=== PATIENT | female | born 1950 | race African-American/Black ===

== ENCOUNTER → 2017-09-13 | Outpatient (CLI) | payer OTHER ==
[~2017-09-13] MED LIST: ADVAIRDISKUS; ALBUTEROL NEB PO; ALBUTEROL2.5 MG/31 INH; CALCIUM 500 +1 EAC5 PO; CALCIUM 600 +1 EAC8 PO; CARAFATE 1 GM TA1 G1 PO; CEFDINIR300 MG PO; COLCHICINE0.6 MG PO; DILANTIN100 MG PO; DIPHENHIST50 MG PO; DUONEB 2.5-0.5 M3 ML INH; HYDROCODON-ACE1 EAC7 PO; HYDROCODON-ACE1 EACH PO; IPRAT-ALBUT 0.5-3 ML IH; IPRATROPIU0.2 MG/1 M INH; KEPPRA 500 MG500 M1 PO; LASIX 40 MG TAB40 M2 PO; MAGOX 400400 MG PO; METOLAZONE 5 MG5 MG PO; NYSTATIN1 EAC1 TOP; PHOSPHA NEUTRAL1 TA1 PO; PREDNISONE 10 M10 MG PO; PREDNISONE 20 M20 MG PO; PRINIVIL5 MG PO; PROPAFENONE 15150 MG PO; PROTONIX40 M1 PO; PROTONIX40 M2 PO; PROTONIX40 M4 PO; PROVENTIL HFA6.7 G1 INH; PULMICORT0.5 MG/22 INH; SINGULAIR 10 MG10 M1 PO; SYMBICORT160 MCG/4. INH; TUMS PO; TYLENOL325 MG PO; VALIUM5 MG PO; VITAMIN B-1100 M1 PO; VITAMIN B-12500 MCG PO; VITAMIN D1000 UNI1 PO; VITAMIN D2000 UNIT PO; VOLTAREN GEL 1100 G2 TOP; ZOLOFT50 MG PO
== END ==
LOC: RAD 09:28
DX: J84.10 Pulmonary fibrosis, unspecified (principal)

== ENCOUNTER 2018-11-04 23:35 | Inpatient (IN) | payer OTHER ==
[~2018-11-04] VITALS: Ht 162.6 cm; Wt 72.0 kg
[2018-11-04 23:36] VITALS: BP 160/85
[2018-11-05] VITALS (21 sets, daily range): BP systolic 115–149; BP diastolic 57–82
[2018-11-05 00:05] LABS: BE(vivo) 4.3 mmol/L (-2 to +3); HCO3 35.9 mmol/L (22.0-26.0); sO2 49.3 % (92.0-98.0)
[2018-11-05 00:09] LABS: PCO2 116.6 mmHg (35.0-45.0); PO2 37.3 mmHg (80.0-100.0); pH 7.106 (7.360-7.450)
[2018-11-05] MEDS ORDERED: CARAFATE 1 GM TA1 G1 PO (00:20)
[2018-11-05] MEDS ORDERED: ZOLOFT50 MG PO (00:21)
[2018-11-05] MEDS ORDERED: KEPPRA 500 MG500 M1 PO (00:24)
[2018-11-05] MEDS ORDERED: DILANTIN 100 M100 MG PO (00:25)
[2018-11-05] MEDS ORDERED: PROTONIX40 M1 PO (00:26)
[2018-11-05] MEDS ORDERED: ASPIR 8181 MG PO (00:26)
[2018-11-05] MEDS ORDERED: ANORO ELLIPTA1 EACH INH (00:42)
[2018-11-05] MEDS ORDERED: PROCRIT20000 UNIT SUBQ (00:44)
[2018-11-05] MEDS ORDERED: SODIUM BICARBO650 M3 PO (00:45)
[2018-11-05] MEDS ORDERED: DEMADEX20 MG PO (00:46)
[2018-11-05 01:01] LABS: HEMATOCRIT 31.2 % (37.0-47.0); HEMOGLOBIN 8.7 gm/dL (12.0-15.0); MCH 22.6 pg (26.0-34.0); MCV 80.5 fL (80.0-100.0); PLATELET COUNT 200 thou/uL (150-400); RBC 3.88 mil/uL (4.20-5.00); RDW 17.4 % (10.5-14.5); WBC 6.8 thou/uL (4.0-11.0)
[2018-11-05 01:10] LABS: ANION GAP 5 mmol/L (7-16); BUN 27 mg/dL (7-18); CALCIUM 8.1 mg/dL (8.5-10.1); CHLORIDE 105 mmol/L (98-107); CO2 34 mmol/L (21-32); CREATININE 2.8 mg/dL (0.6-1.0); GLUCOSE 90 mg/dL (74-106); POTASSIUM 4.9 mmol/L (3.5-5.1); SODIUM 144 mmol/L (136-145)
[2018-11-05 01:18] LABS: TROPONIN-I <0.06 ng/mL (<0.06)
[2018-11-05 01:26] LABS: BE(vivo) 1.6 mmol/L (-2 to +3); HCO3 31.8 mmol/L (22.0-26.0); PCO2 92.2 mmHg (35.0-45.0); PO2 90.8 mmHg (80.0-100.0); pH 7.155 (7.360-7.450); sO2 93.8 % (92.0-98.0)
[2018-11-05 01:37] LABS: ABSOLUTE NEUTROPHILS 3.8 thou/uL (1.4-8.2); ANISOCYTOSIS 1+; ATYPICAL LYMPHS 1 %
[2018-11-05 01:38] LABS: LARGE PLATELETS OCCASIONAL; MICROCYTES 2+
[2018-11-05 02:23] LABS: BE(vivo) 1.7 mmol/L (-2 to +3); HCO3 31.9 mmol/L (22.0-26.0); sO2 93.6 % (92.0-98.0)
[2018-11-05 02:24] LABS: PCO2 94.1 mmHg (35.0-45.0); pH 7.148 (7.360-7.450)
--- NOTE | 2018-11-05 06:31 | NUR ---
Patient arrived to the unit from the ED. Patient admitted with respiratory failure. Patient arrived to the unit on 4L NC and is doing well. VS remained stable and no acute events occurred.
[2018-11-05 07:15] LABS: BE(vivo) 7.9 mmol/L (-2 to +3); HCO3 38.8 mmol/L (22.0-26.0); PO2 67.6 mmHg (80.0-100.0); pH 7.146 (7.360-7.450); sO2 85.3 % (92.0-98.0)
--- NOTE | 2018-11-05 08:45 | 2DMMODE ---
[facility] [address] [place] [address] 2 D/M-MODE ECHOCARDIOGRAM Name: KHURRAM SHEFFIELD Room #: 245-P ADM IN M.R.#: [id number] ������������� Admission: 11/05/18 ������������� Attend Phys: Isaiah Currie, Discharge: ��� ������������� ��� Date of : 50 Date of Service: 11/05/18 0845 �� Report #: [id number] �������� ��������������������������������������������[id number] THIS REPORT FOR: //name// APPROVED REPORT Study performed: 11/05/2018 07:59:13 EXAM: Comprehensive 2D, Doppler, and color-flow Echocardiogram Patient Location: ICU Room #: [facility] Status: routine BSA: 1.71 HR: 90 bpm BP: 138/69 mmHg Rhythm: NSR Other Information Study Quality: Good/patient on BiPAP, not positioned Indications Congestive Heart Failure Dyspnea Peripheral Edema Hx: COPD, PHTN, HTN. 2D Dimensions RVDd: 46.91 mm IVSd: 14.11 (7-11mm) LVDd: 42.22 mm PWd: 12.55 (7-11mm) Ascending Ao: 33.43 (22-36mm) LVDs: 26.88 (25-40mm) Aortic Root: 30.42 mm Volumes Left Atrial Volume (Systole) Single Plane 4CH: 65.22 mL Single Plane 2CH: 62.09 mL LA ESV Index: 40.00 mL/m2 Aortic Valve AoV Peak Benjamín.: 2.82 m/s AO Peak Gr.: 47.32 mmHg LVOT Max P.63 mmHg LVOT Max V: 1.47 m/s Mitral Valve [facility] [address] [place] [address] 2 D/M-MODE ECHOCARDIOGRAM Name: KHURRAM SHEFFIELD Room #: 245-P [facility] IN .R.#: [id number] ������������� Admission: 11/05/18 ������������� Attend Phys: Isaiah Currie, Discharge: ��� ������������� ��� Date of : 50 Date of Service: 11/05/18 0845 �� Report #: [id number] �������� ��������������������������������������������[id number] E/A Ratio: 0.9 MV Decel. Time: 169.74 ms MV E Max Benjamín.: 0.92 m/s MV A Benjamín.: 1.00 m/s MV PHT: 49.22 ms IVRT: 53.06 ms Pulmonary Valve PV Peak Benjamín.: 1.04 m/s PV Peak Gr.: 4.31 mmHg Pulmonary Vein P Vein S: 0.68 m/s P Vein A: 0.34 m/s P Vein D: 0.51 m/s P Vein A Dur.: 90.0 msec P Vein S/D Ratio: 1.33 Tricuspid Valve TR Peak Benjamín.: 4.10 m/s RAP Estimate: 15.00 mmHg TR Peak Gr.: 67.30 mmHg PA Pressure: 82.00 mmHg Left Ventricle The left ventricle is normal size. There is normal LV segmental wall motion. Mild concentric left ventricular hypertrophy. Left ventricular systolic function is normal. LVEF is 65%. Mild diastolic dysfunction is present (impaired relaxation pattern). Right Ventricle Right ventricle is dilated. Right ventricle is mildly hypokinetic. Atria Left atrium is dilated. Right atrium is dilated. Aortic Valve The aortic valve is mildly sclerotic. No aortic regurgitation is present. There is no aortic valvular stenosis. Mitral Valve The mitral valve is normal in structure. Trace to mild mitral regurgitation. Tricuspid Valve The tricuspid valve is normal in structure. Moderate tricuspid regurgitation. Severe pulmonary hypertension with an estimated PAP of 80mmHg. [facility] [address] [place] [address] 2 D/M-MODE ECHOCARDIOGRAM Name: KHURRAM SHEFFIELD Room #: 245-P [facility] IN .R.#: [id number] ������������� Admission: 11/05/18 ������������� Attend Phys: Isaiah Currie, Discharge: ��� ������������� ��� Date of : 50 Date of Service: 11/05/18 0845 �� Report #: [id number] �������� ��������������������������������������������[id number] Pulmonic Valve The pulmonary valve is normal in structure. Trace pulmonic regurgitation. Great Vessels The aortic root is normal in size. The ascending aorta is normal in size. IVC is normal in size and collapses >50% with inspiration. Pericardium There is no pericardial effusion. <Conclusion> Left ventricular systolic function is normal. There is normal LV segmental wall motion. LVEF is 65%. Mild diastolic dysfunction Right ventricle is dilated and mildly hypokinetic. Both atria are dilated. The aortic valve is mildly sclerotic. No aortic valvular stenosis or insufficiency The mitral valve is normal in structure. Trace to mild mitral regurgitation. Moderate tricuspid regurgitation. Severe pulmonary hypertension with an estimated PAP of 80mmHg. There is no pericardial effusion. ��������������������������������������������� <ELECTRONICALLY SIGNED> ���������������������������������������� By: Devon Vang MD, [facility] ��������������������������������������������� 11/05/1845 4 4 Devon Vang MD, FAC /INF
[2018-11-05 10:18] LABS: BE(vivo) 5.8 mmol/L (-2 to +3); PCO2 88.6 mmHg (35.0-45.0); PO2 57.1 mmHg (80.0-100.0); pH 7.215 (7.360-7.450); sO2 81.8 % (92.0-98.0)
--- NOTE | 2018-11-05 13:29 | NUR ---
INITIALLY NOT ON BIPAP THIS MORNING, ABG OBTAINED AND CRITICAL RESULTS CALLED TO DR. REYES. PATIENT PLACED ON BIPAP. ANOTHER ABG OBTAINED AFTER 2HRS AND REPORTED TO DR. REYES WHEN HE ROUNDED. DR. REYES OK FOR PATIENT TO TAKE BREAKS FROM BIPAP. PATIENT DROWSY BUT ORIENTED AND VITALS STABLE.
--- NOTE | 2018-11-05 14:08 | EKG ---
[address] [address] ELECTROCARDIOGRAM REPORT Name: KHURRAM SHEFFIELD VICKI Room #: 245-P ADM IN M.R.#: [id number] ������������������ Admission: 11/05/18 ������������������ Attend Phys: Isaiah Currie MD Discharge: ������������������ Date of : 50 Report #: [id number] ����������������������������������������������������������������� [id number] THIS REPORT FOR: //name// [facility] ED Test Date: 2018-11-05 Test Time: 00:09:48 Pat Name: KHURRAM SHEFFIELD Department: Room: [facility] Gender: F Sandwich Maker: TIM : 1950 Requested By: Axel Curtis Order Number: [id number] MD: Rory Lopez Measurements Intervals [place] Rate: 105 P: 37 [place]: 166 QRS: -19 QRSD: 89 T: 29 QT: 361 QTc: 478 Interpretive Statements Sinus tachycardia Probable left atrial enlargement Borderline left axis deviation Low voltage, precordial leads Abnormal R-wave progression, late transition Compared to ECG 04/23/2015 22:48:42 Low QRS voltage now present Sinus rhythm no longer present T-wave abnormality no longer present Electronically Signed On 11-05-2018 14:08:29 CDT by Rory Lopez [email or web address] ��������������������������������������������� <ELECTRONICALLY SIGNED> ���������������������������������������� By: Rory Lopez MD ��������������������������������������������� 11/05/18 1408 Rory Lopez MD /EPI
--- NOTE | 2018-11-05 16:13 | NUR ---
INITIAL ASSESSMENT: SW reviewed chart and spoke with nursing and attending physician. Pt was admitted from home due to hypercapnic respiratory failure/acute pulmonary edema. Pt is currently on IV abx and bipap. Per nursing, pt was just placed back on bipap. Per chart, pt lives at home. Pt has home O2 in place and used [facility] in the past. SW to follow up with pt at a later time when able to participate in conversation, and will assist as needed with discharge planning.
[2018-11-06] VITALS (19 sets, daily range): BP systolic 119–156; BP diastolic 55–85
--- NOTE | 2018-11-06 07:00 | NUR ---
Pt slept off and on through the night with stable VS. PRN fentanyl given for c/o generalized discomfort with desired effect achieved. Tolerated wearing BiPap for most of the night and SpO2 remain adequate. Taking PO ice chips with no c/o nausea and no BM observed. Voiding per bedpan without difficulty. Continue with POC.
[2018-11-06 11:07] LABS: BE(vivo) 5.5 mmol/L (-2 to +3); HCO3 33.1 mmol/L (22.0-26.0); PCO2 69.1 mmHg (35.0-45.0); PO2 59.1 mmHg (80.0-100.0); pH 7.298 (7.360-7.450); sO2 86.8 % (92.0-98.0)
--- NOTE | 2018-11-06 12:00 | NUR ---
[place] PLACED AND PATENT. O2 SAT DECREASES WITH ACTIVITY OF TURNING, AND NOW IS ABLE TO REST QUIETLY
--- NOTE | 2018-11-06 20:25 | NUR ---
PATIENT TRANSFERRED TO 212 PER W/C WITH O2 AND SLICE CUTTING MACHINE OPERATOR. TOLERATED GETTING INTO CHAIR WITHOUT DIZZINESS OR DYSPNEA. REPORT GIVEN TO NURSE ON 2N
[2018-11-07 00:14] VITALS: BP 135/60
[2018-11-07 04:30] VITALS: BP 144/77
[2018-11-07 05:33] LABS: CALCIUM 8.3 mg/dL (8.5-10.1); CREATININE 2.2 mg/dL (0.6-1.0); POTASSIUM 3.4 mmol/L (3.5-5.1)
--- NOTE | 2018-11-07 07:59 | NUR ---
PT NOT ABLE TO REST THRU THE EVENING, STATED THE RT TX'S WERE MAKING HER TO JITTERY AND ANXIOUS, ORDER RECEIVED FOR DIAZEPAM PRN, STATED PAIN WAS UNDER CONTROL THRU NOC, VSS, SCDS ON, AND USING CALL LIGHT APPROPRIATLY FOR ASSIST TO BSC, REPORT GIVEN TO NEXT SHIFT TO CON'T PPOC.
[2018-11-07 08:00] VITALS: BP 143/61
[2018-11-07 12:00] VITALS: BP 144/76
[2018-11-07 16:00] VITALS: BP 153/62
--- NOTE | 2018-11-07 17:18 | NUR ---
PT CARE ASSUMED APPROX 0915. PT ALERT AND ORIENTED X4. REPORTS GENERALIZED PAIN 7-8/10. REPORTS ADEQUATE PAIN MANAGEMENT WITH CURRENT POC. REPORTS SOA ON EXERTION. VSS. UP WITH SBA TO BSC. PT REPORTS EXTREME SLEEP DEPRIVATION AND A RESULT THERE WAS MINIMAL PARTICIPATION IN PT/OT. FALL PRECAUTIONS IN PLACE DUE TO POTENTIAL CONFUSION. PT DOES NOT WANT BED ALARM BUT ONCE EDUCATED RELUCTANTLY COMPLIED. INTERVENTIONS AND MEDS ADJUSTED TO POC TO HELP PROMOTE ADEQUATE SLEEP TONIGHT. ISOLATION INITIATED. REQUIRED SPECIMEN COLLECTED. WILL F/U. NO DISTRESS NOTED.
[2018-11-07 19:44] VITALS: BP 112/58
[2018-11-08 05:21] VITALS: BP 124/66
[2018-11-08 07:22] VITALS: BP 131/83
--- NOTE | 2018-11-08 07:24 | NUR ---
ASSUME CARE 1900. PT/VITALS STABLE. SOA WITH EXERTION. DENIES PAIN AND TOLERATES ACTIVITY MODERATELY. ASSESSMENT CHARTED. PROGRESSING SLOWLY WITH POC. PLAN IS TO CONTINUE WITH STEROIDS, BREATHING TREATMENT AND ABX. WILL CONTINUE TO MONITOR AND FOLLOW WITH POC
[2018-11-08 10:04] LABS: HEMATOCRIT 26.1 % (37.0-47.0); HEMOGLOBIN 7.6 gm/dL (12.0-15.0); MCH 22.6 pg (26.0-34.0); MCHC 29.3 g/dL (28.0-37.0); MCV 77.3 fL (80.0-100.0); RBC 3.37 mil/uL (4.20-5.00); RDW 17.4 % (10.5-14.5)
[2018-11-08 10:11] LABS: CALCIUM 7.8 mg/dL (8.5-10.1); CREATININE 2.2 mg/dL (0.6-1.0)
[2018-11-08 13:30] VITALS: BP 123/75
[2018-11-08 16:25] VITALS: BP 135/61
[2018-11-08 20:00] VITALS: BP 127/54
--- NOTE | 2018-11-09 03:05 | NUR ---
ASSESSMENT DOCUMENTED.PT BEEN RESTING IN NO ACUTE DISTRESS.A/OX4.VSS.O2 AT 2LITERS.LUNGS WHEEZING NOTED THAT IS RELIEVED WITH NEBULIZER TX.ABTS GIVEN PER ORDERS.PT DENIES ANY PAIN OR ANY DISTRESS AT THIS TIME.AMBULATES WITH SBA TO BR.WILL CONT TO MONITOR PER POC.
[2018-11-09 04:00] VITALS: BP 147/71
[2018-11-09 05:17] LABS: HEMATOCRIT 28.2 % (37.0-47.0); HEMOGLOBIN 8.1 gm/dL (12.0-15.0); MCH 22.6 pg (26.0-34.0); MCHC 28.8 g/dL (28.0-37.0); MCV 78.5 fL (80.0-100.0); RBC 3.6 mil/uL (4.20-5.00); RDW 17.3 % (10.5-14.5); WBC 6.9 thou/uL (4.0-11.0)
[2018-11-09 05:18] LABS: CALCIUM 8.1 mg/dL (8.5-10.1); CREATININE 2.1 mg/dL (0.6-1.0); MAGNESIUM 2.7 mg/dL (1.8-2.4)
[2018-11-09 05:21] LABS: POTASSIUM 4.1 mmol/L (3.5-5.1)
[2018-11-09] MEDS ORDERED: PREDNISONE 10 M10 MG PO (10:52)
[2018-11-09] MEDS ORDERED: AZITHROMYCIN 2250 MG PO (10:53)
[2018-11-09] MEDS ORDERED: CEFDINIR300 MG PO (10:54)
[2018-11-09 11:40] VITALS: BP 147/71
--- NOTE | 2018-11-09 12:43 | NUR ---
ASSESSMENT CHARTED - MEDS PER ALESHIA - RENAE DIET AND FLUIDS WITH NO CO'S OF NASUEA. NO CO'S OF PAIN. UP IN ROOM TO THE BATHROOM - STEADY ON FEET. O2 AT 3 LNC - HOME DOSE. PT DISCHARED TO HOME - INTSRUCTION RE HOME MEDS/ CARE AND FOLLOW UP GIVEN TO PATIENT - STATED UNDERSTANDING OF INSTRUCTION GIVEN. IV AND MONITOR REMOVED PRIOR TO D/C. PT LEFT UNIT VIA WHEELCHAIR - HOME VIA PVT VEHICLE ACCOMAPNIED BY FRIEND . NO CO'S AT TIME OF D/C.
== END 2018-11-09 12:30 | disposition home or self-care (01) | DRG 291 ==
LOC: ER 23:35 → ICU 11-05 02:55 → EROBS 11-05 02:55 → ICU 11-05 04:26 → 2N 11-06 18:05
PROVIDERS: Emergency Medicine; Internal Medicine Pulmonary Disease; Nurse Practitioner Family; ADMIT Internal Medicine
DX: I13.0 Hypertensive heart and chronic kidney disease with heart failure and stage 1 through stage 4 chronic kidney disease, or unspecified chronic kidney disease (principal); J96.21 Acute and chronic respiratory failure with hypoxia; J81.0 Acute pulmonary edema; J18.9 Pneumonia, unspecified organism; J96.22 Acute and chronic respiratory failure with hypercapnia; J44.1 Chronic obstructive pulmonary disease with (acute) exacerbation; F13.20 Sedative, hypnotic or anxiolytic dependence, uncomplicated; F11.20 Opioid dependence, uncomplicated; J44.0 Chronic obstructive pulmonary disease with (acute) lower respiratory infection; J45.909 Unspecified asthma, uncomplicated; G89.29 Other chronic pain; M54.5 Low back pain; I27.20 Pulmonary hypertension, unspecified; F41.9 Anxiety disorder, unspecified; I50.9 Heart failure, unspecified; N18.3 Chronic kidney disease, stage 3 (moderate); G62.9 Polyneuropathy, unspecified; G47.00 Insomnia, unspecified; D64.9 Anemia, unspecified; Z98.42 Cataract extraction status, left eye; Z98.41 Cataract extraction status, right eye; Z88.8 Allergy status to other drugs, medicaments and biological substances; Z87.891 Personal history of nicotine dependence; Z79.899 Other long term (current) drug therapy; Z79.82 Long term (current) use of aspirin
CPT/HCPCS: 10078; 10081

== ENCOUNTER 2018-11-27 10:57 | Inpatient (IN) | payer OTHER ==
[~2018-11-27] VITALS: Ht 162.6 cm; Wt 74.2 kg
[2018-11-27] VITALS (20 sets, daily range): BP systolic 128–164; BP diastolic 55–108
[~2018-11-27 10:57] MED LIST changes: +ANORO ELLIPTA1 EACH INH; +ASPIR 8181 MG PO; +AZITHROMYCIN 2250 MG PO; +DEMADEX20 MG PO; +DILANTIN 100 M100 MG PO; +PROCRIT20000 UNIT SUBQ; +SODIUM BICARBO650 M3 PO
[2018-11-27 11:29] LABS: MCV 80.3 fL (80.0-100.0)
[2018-11-27 11:35] LABS: HEMATOCRIT 28.3 % (37.0-47.0); HEMOGLOBIN 8.1 gm/dL (12.0-15.0); MCHC 28.7 g/dL (28.0-37.0); RBC 3.53 mil/uL (4.20-5.00); RDW 17.4 % (10.5-14.5)
[2018-11-27 11:40] LABS: CALCIUM 7.1 mg/dL (8.5-10.1); CREATININE 2.6 mg/dL (0.6-1.0); POTASSIUM 3.6 mmol/L (3.5-5.1)
[2018-11-27 11:50] LABS: ALBUMIN 3.5 g/dL (3.4-5.0); TOTAL BILIRUBIN 0.2 mg/dL (<0.1-1.0); TOTAL PROTEIN 6.1 g/dL (6.4-8.2); TROPONIN-I 0.08 ng/mL (<0.06)
[2018-11-27 12:01] LABS: ANISOCYTOSIS 1+; HYPOCHROMASIA 1+; OVALOCYTES FEW; PLATELET COUNT 126 thou/uL (150-400); TEARDROPS OCCASIONAL
[2018-11-27 12:14] LABS: HCO3 27.6 mmol/L (22.0-26.0); PO2 78.1 mmHg (80.0-100.0)
[2018-11-27 12:15] LABS: PCO2 80.5 mmHg (35.0-45.0); pH 7.153 (7.360-7.450)
--- NOTE | 2018-11-27 16:08 | NUR ---
PATIENT ARRIVED TO UNIT AT 1535 FROM THE ED. PATIENT ON BIPAP. ALERT AND ORIENTED X4. PATIENT TRANSFERRED TO ICU BED AND GIVEN A BATH WITH CHX WIPES.
--- NOTE | 2018-11-27 16:52 | EKG ---
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
[2018-11-27 17:42] LABS: BE(vivo) 4.2 mmol/L (-2 to +3); HCO3 33.8 mmol/L (22.0-26.0); PO2 56.5 mmHg (80.0-100.0); sO2 80.5 % (92.0-98.0)
[2018-11-27 17:43] LABS: PCO2 89.6 mmHg (35.0-45.0); pH 7.194 (7.360-7.450)
--- NOTE | 2018-11-27 20:56 | NUR ---
ASSESSMENTS AND INTERVENTIONS DOCCUMENTED. PATIENT TRANSFERRED FROM ED AND SETTLED INTO ICU BED. PATIENT REQUESTING ICE AND NURSE EXPLAINED TO PATIENT NPO STATUS. PATIENT ROUNDED ON BY DR. REYES. ORDERS RECIEVED FOR FULL LIQUIDS DIET. REPORT GIVEN TO MARINE OPERATIONS COORDINATOR RN
[2018-11-28] VITALS (37 sets, daily range): BP systolic 123–169; BP diastolic 27–84
--- NOTE | 2018-11-28 05:48 | NUR ---
NO OVERNIGHT EVENTS. PT ON 4-5L NC THROUGHOUT THE NIGHT. PT REFUSED TO USE THE BIPAP, SAID SHE CANNOT TOLERATE IT. PT'S O2 WOULD DESAT WITH ACTIVITY (USING THE BEDPAN) OR IF HER HEAD WAS LAID FLAT, BUT OTHERWISE REMAINED > 94%. BP ELEVATED AT TIMES, BUT USUALLY COMES DOWN WITHOUT INTERVENTION. WILL CONTINUE TO MONITOR.
[2018-11-28 06:16] LABS: HEMATOCRIT 26.5 % (37.0-47.0); HEMOGLOBIN 7.6 gm/dL (12.0-15.0); MCH 22.9 pg (26.0-34.0); MCHC 28.8 g/dL (28.0-37.0); MCV 79.6 fL (80.0-100.0); RBC 3.33 mil/uL (4.20-5.00); RDW 16.8 % (10.5-14.5); WBC 6.4 thou/uL (4.0-11.0)
[2018-11-28 06:20] LABS: CALCIUM 7.6 mg/dL (8.5-10.1); CREATININE 2.3 mg/dL (0.6-1.0); POTASSIUM 3.6 mmol/L (3.5-5.1)
--- NOTE | 2018-11-28 15:40 | NUR ---
CM ASSESSMENT: CASE OPENED FOR DC PLANNING. CLINICAL INFO REVIEWED. PT KNOWN FROM PREVIOUS ADMITS. MET WITH PT WHO IS ALERT AND ORIENTED X4. PT LIVES IN HOUSE ALONE, HAS HOME O2 (3L NC) AND NEBULIZER FROM [facility]. ALSO HAS CANE SHE USES WHEN OUT. DOES NOT DRIVE. FAMILY DRIVES PT. REMOTE HX OF [facility]. SEES DR. ZACHERY العلي FOR PULM. DPOA IN SCANNED IMAGES SHOWS HER COUSIN PAT MEDICAL DPOA BUT PT STATES SHE CHANGED DPOA TO A FAMILY MEMBER, SHADI KAYE [phone]. RN UPDATED. THERAPY EVALS ORDERED. WILL FOLLOW TO ASSIST WITH DC PLANNING. POSSIBLE HOME HEALTH.
--- NOTE | 2018-11-28 16:19 | NUR ---
PT IS DROWSY. PT WAS ANXIOUS TODAY AND VALIUM GIVEN ON APR FOR ANXIETY NOTED WITH PT THEN PT IS DROWSY NOW. LUNGS ARE COARSE TO DIMINISHED. ON 7 LITERS NASAL CANULA. FAMILY AT BEDSIDE FOR SUPPORT. ABDOMEN IS SOFT AND ROUND. BOWEL SOUNDS ACTIVE. SCDS ON BILATERAL. NO COMPLAINTS OF PAIN NOTED. REFUSES TO WEAR BIPAP MACHINE AND PULMONARY AWARE OF REFUSAL AT THIS TIME. WILL CONTINUE TO ASSESS AND MONITOR PER NURSING.
[2018-11-28 19:28] LABS: BE(vivo) 2.2 mmol/L (-2 to +3); HCO3 34.7 mmol/L (22.0-26.0); PO2 59.2 mmHg (80.0-100.0); sO2 74.1 % (92.0-98.0)
[2018-11-28 19:32] LABS: PCO2 132.7 mmHg (35.0-45.0); pH 7.035 (7.360-7.450)
[2018-11-29] VITALS (23 sets, daily range): BP systolic 117–162; BP diastolic 50–79
[2018-11-29 05:43] LABS: HEMATOCRIT 26.4 % (37.0-47.0); HEMOGLOBIN 7.8 gm/dL (12.0-15.0); MCH 23.7 pg (26.0-34.0); MCHC 29.4 g/dL (28.0-37.0); MCV 80.5 fL (80.0-100.0); RBC 3.28 mil/uL (4.20-5.00); RDW 16.8 % (10.5-14.5); WBC 6.8 thou/uL (4.0-11.0)
--- NOTE | 2018-11-29 06:00 | NUR ---
PT ON BIPAP MOST OF THE NIGHT. PT EDUCATED ON IMPORTANCE OF WEARING BIPAP WITH ELEVATED CO2. PT TOOK ONE HOUR BREAK FROM [id number] AND THEN WANTED IT OFF AT 0515 THIS MORNING, SAYING SHE WANTED TO TALK TO A PHYSCIAN BEFORE WEARING IT ANYMORE. SHE SAID THERE IS ANOTHER WAY BESIDES THE BIPAP AND SHE CANNOT TOLERATE IT. PT PUT ON 8L 02 NC. WILL CONTINUE TO MONITOR.
[2018-11-29 06:01] LABS: CALCIUM 7.5 mg/dL (8.5-10.1); POTASSIUM 4.2 mmol/L (3.5-5.1)
[2018-11-29 06:03] LABS: CREATININE 3.3 mg/dL (0.6-1.0)
[2018-11-29 14:46] LABS: BE(vivo) -0.9 mmol/L (-2 to +3); HCO3 29.5 mmol/L (22.0-26.0); PO2 61.2 mmHg (80.0-100.0); sO2 80.9 % (92.0-98.0)
[2018-11-29 14:49] LABS: PCO2 93.7 mmHg (35.0-45.0); pH 7.116 (7.360-7.450)
--- NOTE | 2018-11-29 19:20 | NUR ---
ASSUMED CARE @ 0700 11/29/18, PT ASSESSMENTS AND VSS COMPLETED PER ICU PROTOCOL. FAMILY HERE TO VISIT WITH DURING THE SHIFT, PT HAD AN UNEVENTFUL DAY.
[2018-11-30] VITALS (14 sets, daily range): BP systolic 133–174; BP diastolic 59–83
--- NOTE | 2018-11-30 01:30 | NUR ---
EPISODE OF EPISTAXIS TONIGHT. PT STARTED BLEEDING FROM RT NARE AROUND 2029, WHEN PT STARTED BLOWING HER NOSE D/T CONGESTION. PT SAID THE BLEEDING BEGAN WHEN THEY SWABBED HER NOSE AROUND DINNER TIME. THERE WAS NO BLEEDING FROM START OF SHIFT AT 1900 UNTIL 2029. BLEEDING WAS MINIMAL AND PT WAS INSTRUCTED TO KEEP HOB UP AND LEAN HEAD FORWARD. BLEEDING STARTED TO INCREASE AROUND 2229, SO BENJAMIN PATEL CALLED AND ORDER OBTAINED FOR AFRIN NASAL SPRAY, AND IF THE BLEEDING DID NOT STOP, THEN TO HAVE ER PHYSICIAN PACK PT'S NOSE. AFRIN NASAL SPRAY ADMINISTERED, BUT THE BLEEDING DID NOT STOP OR SLOW DOWN. ER CALLED AND NASAL PACKING REQUESTED AT 2355. PACKING WAS PLACED BY DR. HEWITT AT 0020. AFTER RT NARE WAS PACKED, PT PLACED ON BIPAP. PT CALLED OUT AND SAID SHE COULD NOT WEAR THE BIPAP D/T PRESSURE FROM THE PACKING AND PRESSURE FROM THE MASK. PT WAS NOT GETTING SUFFICIENT O2 THROUGH NASAL CANNULA D/T PACKING, SO PT WAS PLACED ON VENTIMASK AT 40% FIO2 AND O2 SAT IS >88%. WILL CONTINUE TO MONITOR.
--- NOTE | 2018-11-30 07:30 | NUR ---
NO CHANGES FROM PRIOR NOTE. PACKING REMAINS IN PLACE IN RT NARE. PT DID NOT WEAR BIPAP AND WAS ON THE VENTIMASK THE REMAINDER OF THE NIGHT. PT C/O HEADACHE, BUT WAS VERY DROWSY AND NOT GIVEN PAIN MEDS. WILL CONTINUE TO MONITOR.
--- NOTE | 2018-11-30 08:38 | NUR ---
ASSUMED CARE OF PT FOR DAY SHIFT, A&0X4, SLIGHTLY FORGETFUL. TIRED, REPORTS OF NOSE BLEED STARTING EARLY A.M. HOURS, DR PLACED PACKING, DRIED BLOOD AND A LITTLE FRESH AT ENTRANCE TO NARES. PT SLEEPY, ENCOURAGED HER TO USE CALL LIGHT FOR ANY NEEDS. DRANK JUICE TO ENSURE BG OF 77 DIDN'T GET ANY LOWER THE MOMENT SHE REMOVES VENTI HER SATS DROP IMMEDIATELY. SHE ISN'T HUNGRY AT THIS TIME. SET UP/MONITORED PER ICU STANDARDS AND MONITORED FREQUENTLY. SEE SEPARATE INTERVENTIONS FOR ASSESSMENTS
--- NOTE | 2018-11-30 23:06 | NUR ---
ASSUMED PT CARE AT 1900. VSS. HR SLIGHTLY ELEVATED BUT LES THAN 110s. PT IS STABLE, A&0X4 AND IN HIGH SPIRITS. NO COMPLAINTS OF DISCOMFORT. ASSESSMENTS AND MEDS GIVEN ARE CHARTED. REPORT CALLED TO 3W NURSE AND PT EXITED THE UNIT TO 3W IN POSSESION OF ALL PERSONAL BELONGINS.
[2018-12-01 03:50] VITALS: BP 154/76
[2018-12-01 05:16] LABS: CALCIUM 7.3 mg/dL (8.5-10.1)
[2018-12-01 05:38] LABS: CREATININE 4.4 mg/dL (0.6-1.0)
[2018-12-01 05:45] LABS: HEMATOCRIT 23.7 % (37.0-47.0); MCH 23.1 pg (26.0-34.0); MCHC 29.7 g/dL (28.0-37.0); MCV 77.9 fL (80.0-100.0); RBC 3.04 mil/uL (4.20-5.00); RDW 16.7 % (10.5-14.5); WBC 6.4 thou/uL (4.0-11.0)
--- NOTE | 2018-12-01 05:57 | NUR ---
PT ARRIVED TO UNIT FROM ICU. PT WEARING VENTI-MASK DUE TO NASAL PACKING PLACED BY ER DOCTOR. CONSULT TO ENT WILL BE PLACED THIS MORNING. PT WILL NOT BE ON BIPAP UNTIL PACKING REMOVED. PT KEEPS ASKING FOR IT TO BE REMOVED. X1 TO BSC. CONTINUOS PULSE OX IN PLACE PT TAKES THE MASK OFF DURING SLEEP. PT HAS NO OTHER COMPLAINTS. HOURLY ROUNDING.
[2018-12-01 09:09] VITALS: BP 155/86
[2018-12-01 12:00] VITALS: BP 153/75
--- NOTE | 2018-12-01 14:04 | NUR ---
is here to see pt.
[2018-12-01 15:58] VITALS: BP 151/80
[2018-12-01 16:55] VITALS: BP 151/80
--- NOTE | 2018-12-01 18:00 | NUR ---
Pt is doing well after nose pillow removed. No s/sx of any active bleeding indicates,humidifier add to her Ventimask by RT. Will continue to monitor her closely.
[2018-12-01 19:30] VITALS: BP 138/66
[2018-12-02 03:58] VITALS: BP 151/60
[2018-12-02 05:40] LABS: HEMATOCRIT 24.4 % (37.0-47.0); HEMOGLOBIN 7.1 gm/dL (12.0-15.0); MCH 22.9 pg (26.0-34.0); MCHC 29.2 g/dL (28.0-37.0); MCV 78.3 fL (80.0-100.0); RBC 3.11 mil/uL (4.20-5.00); RDW 16.9 % (10.5-14.5); WBC 7.3 thou/uL (4.0-11.0)
[2018-12-02 05:51] LABS: ALBUMIN 2.9 g/dL (3.4-5.0); CALCIUM 7.3 mg/dL (8.5-10.1); CREATININE 4.1 mg/dL (0.6-1.0); PHOSPHORUS 3.3 mg/dL (2.5-4.9)
[2018-12-02 05:55] LABS: MAGNESIUM 0.8 mg/dL (1.8-2.4)
[2018-12-02 07:31] VITALS: BP 156/76
--- NOTE | 2018-12-02 12:17 | NUR ---
SW reviewed chart and spoke with nursing and attending physician. Pt was transferred to from ICU and is progressing towards goals for discharge. ENT consulted due to pt having nose bleeds. Renal consulted due to CKD and low potassium. Pt remains on continuous O2 and IV abx. Therapy is working with pt to assist with recommendation for discharge needs. Pt has used [facility] in the past. SW is following to assist as needed with discharge planning.
[2018-12-02 15:56] VITALS: BP 145/83
[2018-12-02 17:36] LABS: MAGNESIUM 2.1 mg/dL (1.8-2.4); POTASSIUM 3.6 mmol/L (3.5-5.1)
[2018-12-02 19:48] VITALS: BP 133/71
[2018-12-03 03:35] VITALS: BP 141/74
--- NOTE | 2018-12-03 04:32 | NUR ---
cont. pulse ox. she desats when getting up to the bsc. she is good about calling for assist out of bed. denies pain. she is frusterated and is wanting to get home. cooperative with cares. careplan reviewed.
[2018-12-03 05:58] LABS: ALBUMIN 3.1 g/dL (3.4-5.0); CALCIUM 8.1 mg/dL (8.5-10.1); CREATININE 3.6 mg/dL (0.6-1.0); POTASSIUM 3.6 mmol/L (3.5-5.1)
--- NOTE | 2018-12-03 06:33 | NUR ---
pt continues to refuse the prbc's that were ordered 12/02/18 for her hemoglobin of 7.1 she stated that she wants to talk with her doctor today and ask about epogen sq, which is what she has done in the past.
[2018-12-03 07:28] VITALS: BP 157/69
[2018-12-03 09:10] LABS: HEMOGLOBIN 6.9 gm/dL (12.0-15.0); MCH 22.9 pg (26.0-34.0); WBC 7.3 thou/uL (4.0-11.0)
[2018-12-03 09:11] LABS: HEMATOCRIT 23.7 % (37.0-47.0); MCHC 29.2 g/dL (28.0-37.0); MCV 78.5 fL (80.0-100.0); PLATELET COUNT 137 thou/uL (150-400); RBC 3.02 mil/uL (4.20-5.00); RDW 17.2 % (10.5-14.5)
[2018-12-03 09:46] LABS: ABSOLUTE NEUTROPHILS 5.3 thou/uL (1.4-8.2); ANISOCYTOSIS 2+; HYPOCHROMASIA 1+; PLATELET ESTIMATE NORMAL
[2018-12-03 11:15] VITALS: BP 154/76
--- NOTE | 2018-12-03 13:09 | NUR ---
This morning, the Pt ate all of her breakfast and used the bedside commode. She did well with ambulating to the bedside commode. Pt complained of no SOB while using the commode. She stated that she likes to use the commode every hour on the hour. Pt has expressed SOB worsening when sitting or laying in bed. Pt also expressed that it feels easier to breath when she is up moving around. She has been tolerating her face mask well and complains of no pain. Pt worked with OT and moved to the chair around 1230. O2 saturation has been between 93-98% all day.
--- NOTE | 2018-12-03 13:48 | NUR ---
I have reviewed the student's documentation.
[2018-12-03 15:18] VITALS: BP 153/69
[2018-12-03 17:49] VITALS: BP 140/56; BP 141/58; BP 142/49; BP 143/61
[2018-12-03 19:02] VITALS: BP 145/75
--- NOTE | 2018-12-03 19:44 | NUR ---
PT ALERT AND ORIENTED TIMES FOUR. VSS, 99% PER FACE SHIELD MASK. SR ON TELE. PT DENIES PAIN/SOA. PT TOLERATES MEDS AND MEALS. PT UP TO CHAIR FOR MOST OF THE SHIFT. PT SLOWLY PROGRESSING [facility].
[2018-12-04 03:11] VITALS: BP 119/52
--- NOTE | 2018-12-04 03:40 | NUR ---
PATIENT IS ADVANCING SLOWLY IN HER CARE PLAN. VITAL SIGNS STABLE WITH PATIENT HAVING NO COMPLAINTS OF PAIN OR NAUSEA. FULLY ORIENTED, PATIENT IS ABLE TO PARTICIPATE IN CARE AND CALL APPROPRIATELY FOR NEEDS. BREATHING STABLE ON FACE MASK EVIDENCED BY ASSESSMENT AND SPOT OXYGENATION CHECKS. PATIENT HAS BEEN UP MULTIPLE TIMES TO BEDSIDE COMMODE WITH ASSISTANCE INCIDENT FREE. CONTINUE PLAN OF CARE.
[2018-12-04 05:28] LABS: ALBUMIN 3.3 g/dL (3.4-5.0); CALCIUM 8.2 mg/dL (8.5-10.1); CREATININE 3.3 mg/dL (0.6-1.0); PHOSPHORUS 3.7 mg/dL (2.5-4.9); POTASSIUM 3.5 mmol/L (3.5-5.1)
[2018-12-04 07:26] VITALS: BP 153/72
--- NOTE | 2018-12-04 09:09 | NUR ---
Nutrition: Assessed d/t LOS. Admit: hypoxia, acute on chronic respiratory failure. Is s/p epistaxis. Hx for COPD, anemia, HTN, pulmonary HTN, CKD III, diastolic heart failure, anasarca, hx PE. On heart healthy diet, finally able to start eating better the last 2 days. Improved from 47% meal average on 12/02 to 87% on 12/03. Pt reports ~3 days at start of stay she wasn't able to eat d/t breathing requirements/full mask required. Now able to eat bites and go back to oxygen as needed. On daily potassium chloride for recent low K+, improved to 3.5 (WNL) today. Phos also WNL at 3.7. RD helped make future menu changes to improve po success outcomes with foods she prefers. Encouraged protein as priority at meals first; educated on low Na. Low nutrition risk.
[2018-12-04 11:27] VITALS: BP 124/74
--- NOTE | 2018-12-04 15:09 | NUR ---
SW reviewed chart and spoke with nursing and attending physician. Pt requiring 15L hi flow O2 via face mask. Therapy working with pt to assist with recommendations for discharge. SW is following to assist as needed with discharge planning.
[2018-12-04 15:50] VITALS: BP 135/75
--- NOTE | 2018-12-04 18:14 | NUR ---
PT ALERT AND ORIENTED TIMES FOUR. VSS. 93%FACE SHIELD. PT DENIES PAIN. PT TOLERATES MEDS AND MEALS. [facility] PT SLOWLY PROGRESSING [facility] POC GOALS.
[2018-12-04 20:13] VITALS: BP 150/69
[2018-12-05 04:14] VITALS: BP 144/59
[2018-12-05 05:33] LABS: ALBUMIN 3.1 g/dL (3.4-5.0); CALCIUM 8.2 mg/dL (8.5-10.1); CREATININE 3.1 mg/dL (0.6-1.0); PHOSPHORUS 3.9 mg/dL (2.5-4.9); POTASSIUM 3.9 mmol/L (3.5-5.1)
[2018-12-05 05:41] LABS: MCHC 29.8 g/dL (28.0-37.0)
[2018-12-05 05:51] LABS: BASOPHILS 0.4 % (0.0-2.0); EOSINOPHILS 3.3 % (0.0-3.0); HEMATOCRIT 26.9 % (37.0-47.0); LYMPHOCYTES 22.9 % (24.0-44.0); MCH 23.9 pg (26.0-34.0); MCV 80.2 fL (80.0-100.0); MONOCYTES 11.4 % (1.0-8.0); PLATELET COUNT 205 thou/uL (150-400); RBC 3.35 mil/uL (4.20-5.00); RDW 17.5 % (10.5-14.5); WBC 6.5 thou/uL (4.0-11.0)
--- NOTE | 2018-12-05 07:40 | NUR ---
PATIENT IS PROGRESSING SLOWLY IN HER CARE PLAN. VITAL SIGNS STABLE WITH PATIENT HAVING NO COMPLAINTS OF PAIN OR NAUSEA. FULLY ORIENTED, PATIENT WAS ABLE TO CALL FOR NEEDS AND PARTICIPATE IN CARE. PATIENT DID DISPLAY ANXIETY EARLY IN MORNING. BREATHING STABLE EVIDENCED BY ASSESSMENT AND SPOT OXYGENATION CHECKS. UP MULTIPLE TIMES TO THE BEDSIDE COMMODE WITH ASSISTANCE INCIDENT FREE. PATIENT GIVEN BED BATH. CONTINUE PLAN OF CARE.
[2018-12-05 07:52] LABS: BE(vivo) -4.2 mmol/L (-2 to +3); HCO3 23.3 mmol/L (22.0-26.0); PCO2 55.9 mmHg (35.0-45.0); PO2 72.1 mmHg (80.0-100.0); pH 7.237 (7.360-7.450); sO2 91.4 % (92.0-98.0)
[2018-12-05 07:56] VITALS: BP 123/53
[2018-12-05 15:21] VITALS: BP 126/57
--- NOTE | 2018-12-05 18:17 | NUR ---
ASSUMED CARE OF PT AT 0700. PT ALERT AND ORIENTED. IN NO ACUTE DISTRESS. WHEEZES ON 3.5L. UP W/ 1 ASSIST TO BSC. UNEVENTFUL ON TELEMETRY. VITALS STABLE. PT PROGRESSING TOWARD POC GOALS. ABG'S SHOWING IMPROVEMENT.
[2018-12-05 19:25] VITALS: BP 128/95
[2018-12-06 03:56] VITALS: BP 140/82
--- NOTE | 2018-12-06 05:12 | NUR ---
SLEPT PART OF SHIFT. STATES DOES NOT SLEEP WELL, IS AWAKE ALOT. UP TO COMODE WITH STANDBY ASSIST NEEDED. WORKING ON GOALS AND PLAN OF CARE FOR NOC. PROGRESSING SLOWLY TOWARDS DISCHARGE GOALS. CONTINUE TO ASSES CLOSELY. VALIUM PRN FOR ANXIETY.
[2018-12-06 05:46] LABS: HEMATOCRIT 26.5 % (37.0-47.0); HEMOGLOBIN 7.7 gm/dL (12.0-15.0); MCH 23.5 pg (26.0-34.0); MCV 81.2 fL (80.0-100.0); RBC 3.26 mil/uL (4.20-5.00); RDW 17.6 % (10.5-14.5); WBC 5.8 thou/uL (4.0-11.0)
[2018-12-06 05:56] LABS: ANION GAP 9 mmol/L (7-16); BUN 32 mg/dL (7-18); CALCIUM 8.3 mg/dL (8.5-10.1); CHLORIDE 102 mmol/L (98-107); CO2 29 mmol/L (21-32); GLUCOSE 90 mg/dL (74-106); POTASSIUM 3.8 mmol/L (3.5-5.1); SGOT 12 U/L (15-37); SGPT 16 U/L (30-65); SODIUM 140 mmol/L (136-145); TOTAL BILIRUBIN < 0.1 mg/dL (<0.1-1.0); TOTAL PROTEIN 6.4 g/dL (6.4-8.2)
[2018-12-06 07:34] VITALS: BP 141/56
[2018-12-06 15:50] VITALS: BP 140/70
--- NOTE | 2018-12-06 16:41 | NUR ---
Assumed care approx. 0700 this AM. No acute changes this shift. Lungs coarse/wheezey/diminished. Patient on 2LNC currently. IV abx infusing per orders. Patient up to BSC standby but still short of breath with exertion and tachycardic with ambulation. Minimal edema noted in bilateral feet. Patient expected to stay over the weekend per case management. Patient slowly progressing toward goals.
[2018-12-06 19:17] VITALS: BP 144/65
[2018-12-06 19:20] VITALS: BP 117/67
--- NOTE | 2018-12-07 02:33 | NUR ---
SLEPT PART OF SHIFT. TOLERATING O2 2L/NC, WITH SOME SHORTNESS OF AIR WITH ACTIVTIY. ASSIST UP TO COMODE NEEDED WITH STANDBY ASSIST. MAINTAIN SAFE ENVIRONMENT. HYDROCODONE PRN FOR GENERALIZED PAIN. WORKING ON GOALS AND PLAN OF CARE FOR NOC. PROGRESSING SLOWLY TOWARDS DISCHARGE GOALS. CONTINUE TO ASSES CLOSELY AND MONITOR LABS DAILY. ENCOURAGE INCREASE ACTIVITY TOLERATED.
[2018-12-07 03:11] VITALS: BP 143/78
[2018-12-07 05:07] LABS: ALBUMIN 3.1 g/dL (3.4-5.0); CALCIUM 8.2 mg/dL (8.5-10.1); CREATININE 2.8 mg/dL (0.6-1.0); PHOSPHORUS 2.8 mg/dL (2.5-4.9); POTASSIUM 4.2 mmol/L (3.5-5.1)
[2018-12-07 07:34] VITALS: BP 152/69
[2018-12-07 08:45] LABS: HEMATOCRIT 25.8 % (37.0-47.0); HEMOGLOBIN 7.6 gm/dL (12.0-15.0); MCH 23.9 pg (26.0-34.0); MCHC 29.6 g/dL (28.0-37.0); MCV 80.9 fL (80.0-100.0); RBC 3.19 mil/uL (4.20-5.00); RDW 18.3 % (10.5-14.5); WBC 6.1 thou/uL (4.0-11.0)
[2018-12-07 11:55] VITALS: BP 118/63
[2018-12-07 12:56] LABS: % SATURATION 23 % (20-39); IRON 65 ug/dL (50-170); TIBC 282 ug/dL (250-450)
[2018-12-07 14:03] LABS: URINE BILIRUBIN NEGATIVE (Negative); URINE BLOOD 1+ (Negative); URINE CLARITY CLEAR; URINE COLOR YELLOW; URINE GLUCOSE-RANDOM* NEGATIVE (Negative); URINE KETONES NEGATIVE (Negative); URINE LEUKOCYTES NEGATIVE (Negative); URINE NITRITE NEGATIVE (Negative); URINE PROTEIN (DIPSTICK) NEGATIVE (Negative); URINE SPECIFIC GRAVITY <= 1.005 (1.005-1.035); URINE UROBILINOGEN 0.2 E.U./dl (0.2-1.0)
[2018-12-07 14:18] LABS: BACTERIA None Seen /HPF (None Seen); CASTS None Seen /LPF (None Seen); CRYSTALS None Seen /LPF (None Seen); SQUAMOUS 4-10 Moderate /LPF (0-3); URINE RBC 0-2 Rare /HPF (0-2); URINE WBC 0-5 Rare /HPF (0-5)
--- NOTE | 2018-12-07 15:54 | NUR ---
PT PROGRESSING TOWARDS DISCHARGE...RENAL HAS CLEARED HER BUT SHE REMAINS SHORT OF AIR..WILL MONITOR
[2018-12-07 19:28] VITALS: BP 150/69
[2018-12-08 04:04] VITALS: BP 128/63
[2018-12-08 06:04] LABS: ALBUMIN 3.1 g/dL (3.4-5.0); CALCIUM 8.4 mg/dL (8.5-10.1); CREATININE 2.8 mg/dL (0.6-1.0); PHOSPHORUS 3.4 mg/dL (2.5-4.9); POTASSIUM 4.4 mmol/L (3.5-5.1)
[2018-12-08 08:30] VITALS: BP 133/78
[2018-12-08 11:38] VITALS: BP 125/62
[2018-12-08 15:27] VITALS: BP 120/61
[2018-12-08 19:54] VITALS: BP 144/74
[2018-12-09 03:56] VITALS: BP 148/68
[2018-12-09 07:30] VITALS: BP 127/66
[2018-12-09 11:22] VITALS: BP 127/49
[2018-12-09 12:54] VITALS: BP 127/49
--- NOTE | 2018-12-09 13:28 | NUR ---
ASSUMED CARE, OX4, NO COMPLAINTS OF PAIN OR NAUSEA. SR ON MONITOR. STANDBY ASSIST TO BR. VSS. WILL DISCHARGE HOME TODAY.
[2018-12-09 14:33] VITALS: BP 127/49
--- NOTE | 2018-12-09 14:41 | NUR ---
dp sent referral hh to [facility], also sent dc papers, let them know patient discharge from hospital today.
[2018-12-09 16:21] VITALS: BP 127/49
--- NOTE | 2018-12-10 08:39 | HC ---
[facility] [place] [address] CONSULTATION Name: KHURRAM SHEFFIELD Room #: 353-P [facility] IN M.R.#: [id number] Admission: 11/27/18 Attend Phys: Eleonora Ferrara MD Discharge: 12/09/18 Date of : 50 Report #: [id number] THIS REPORT FOR: //name// CC: Eleonora Ulloa REASON FOR CONSULTATION: Elevated creatinine. REASON FOR PRESENTATION: Shortness of breath. HISTORY OF PRESENT ILLNESS: The patient is a 68-year-old with extensive past medical history including severe pulmonary hypertension, chronic kidney disease with a baseline creatinine of around 2.5. She was recently discharged from the hospital after being treated for respiratory failure and pulmonary edema. She was in a nail shop with her sister and started to feel somewhat funny, dizzy, and short of breath and presented for further evaluation. Oxygen saturation on presentation was around 85%. The patient's creatinine on presentation was 2.6. This had risen up to 4.4 with the diuresis. From the renal perspective, she has chronic kidney disease, who sees Dr. Drummond in our clinic and baseline creatinine is around 2.5 and she is maintained on torsemide as the diuretics. She has had numerous medical issues in the past and has required repeated hospitalizations for many issues. She has severe pulmonary hypertension with the most recent echo revealing a PA pressure of around 80. PAST MEDICAL HISTORY: 1. Chronic kidney disease. 2. Pulmonary hypertension. 3. Chronic obstructive pulmonary disease. 4. Bilateral cataract surgery. 5. Hypertension. 6. Anxiety. 7. Asthma. MEDICATIONS: 1. Diazepam. 2. Propafenone. 3. Phenytoin. 3. Aspirin. 4. Torsemide. ALLERGIES: PREDNISONE AND LISINOPRIL. SOCIAL HISTORY: She is an ex-smoker. She denies drug or alcohol abuse. REVIEW OF SYSTEMS: GENERAL: Significant for weakness. CARDIOVASCULAR: As per the history of present illness. [facility] [address] [place] [address] CONSULTATION Name: KHURRAM SHEFFIELD Room #: 353-[facility] IN ..#: [id number] Admission: 11/27/18 Attend Phys: Eleonora Ferrara MD Discharge: 12/09/18 Date of : 50 Report #: [id number] PULMONARY: Significant for shortness of breath. GASTROINTESTINAL: No nausea or vomiting. GENITOURINARY: No frequency, no urgency. MUSCULOSKELETAL: Occasional back pain and myalgias. SKIN: No rash or ulcerations. NEUROLOGICAL: Significant for headache and dizziness. PHYSICAL EXAMINATION: VITAL SIGNS: Temperature 37.6, blood pressure 156/76. HEAD AND NECK: No jugular venous distention. CHEST: Bilateral crackles. CARDIOVASCULAR: No rub. ABDOMEN: Soft, nontender. EXTREMITIES: Lower extremities, no edema. LABORATORY VALUES: Reviewed. Sodium is 140, potassium is 3, BUN is 30, creatinine is 4.1. Magnesium is 0.8. IMPRESSION AND PLAN: 1. Acute kidney injury. 2. Chronic kidney disease with a baseline creatinine of around 2.5. 3. Hypokalemia. 4. Hypomagnesemia. 5. Anemia. 6. Severe pulmonary hypertension. 7. Recent worsening of her renal function is due to diuresis. Unfortunately, with her severe pulmonary hypertension, it will be very difficult to manage her diuretic regimen. 8. At this point, I will hold her torsemide. 9. Replace potassium. 10. Replace magnesium. 11. Management of her severe chronic obstructive pulmonary disease and pulmonary hypertension by the design technician and the primary team. 12. Overall, expect her renal function to recover back to her baseline. She has had those events before and she recovered without any issues. She will need a baseline diuresis down the road when we stabilize her renal function. <ELECTRONICALLY SIGNED> By: Kip Gandhi MD 12/10/18 0839 [id number] 2049 Kip Gandhi MD /nt
[2018-12-10 13:10] LABS: ANTI-DNA SCREEN <1 IU/mL (0-9); ANTI-RNP <0.2 AI (0.0-0.9)
--- NOTE | 2018-12-11 08:11 | HC ---
[facility] [place] [address] CONSULTATION Name: KHURRAM SHEFFIELD Room #: 353-P [facility] IN M.R.#: [id number] Admission: 11/27/18 Attend Phys: Eleonora Ferrara MD Discharge: 12/09/18 Date of : 50 Report #: [id number] THIS REPORT FOR: //name// CC: Eleonora Ulloa DATE OF SERVICE: 12/08/2018 HISTORY OF PRESENT ILLNESS: The patient is a 68-year-old female with a history of severe pulmonary hypertension, chronic renal insufficiency, chronic anemia, was admitted with increasing shortness of breath, dizziness on 11/27/2018. REASON FOR GI CONSULTATION: Stool was Hemoccult positive on 12/05/2018. Her hemoglobin yesterday was 7.6; however, it was 8.1 on admission. She has received 1 unit of packed cells during this hospitalization. Her low hemoglobin during this hospitalization was 6.9. She denies any abdominal pain. She denies any obvious bright red blood per rectum or melena. No nausea or vomiting. She underwent an upper endoscopy by myself on 09/21/2014 in which a gastric ulcer with visible vessel and upper GI bleed at that time was noted. This was treated with cautery. Since that time, it appears she has been on daily PPI therapy. She does report some mild dysphagia to pills at times as well as some foods. She underwent a colonoscopy 5 years ago by a different grain handler at [facility] that was reportedly negative. She was followed by Dr. Drummond in Nephrology and it appears she was getting EPO shots on a regular basis. She states that she has not received that in the last 1-2 months. She does have EPO ordered here. She is currently on Protonix b.i.d. and Carafate. She also takes aspirin at home on a regular basis. Her weight has been fairly stable. PAST MEDICAL HISTORY: Pulmonary hypertension; COPD, she is O2 dependent, she is currently on 3.5 liters of oxygen; congestive heart failure; chronic anemia; chronic renal insufficiency; previous history of bleeding gastric ulcer in 2015; hypertension; history of anxiety; tricuspid regurgitation; chronic low back pain. ALLERGIES: PREDNISONE and LISINOPRIL. REVIEW OF SYSTEMS: As per HPI. SOCIAL HISTORY: Quit smoking years ago. She denies any alcohol use. FAMILY HISTORY: Negative for colon cancer. CURRENT MEDICATIONS: EPO was just ordered for tomorrow, albuterol, Atrovent, IV fluids, torsemide, Protonix 40 mg b.i.d., methylprednisolone, ceftriaxone, azithromycin, potassium chloride, sertraline, hydrocodone, Carafate, phenytoin, [place] [address] CONSULTATION Name: KHURRAM SHEFFIELD Room #: 353-P [facility] IN M.R.#: [id number] Admission: 11/27/18 Attend Phys: Eleonora Ferrara MD Discharge: 12/09/18 Date of : 50 Report #: [id number] Zofran p.r.n., Keppra, diazepam p.r.n., Tylenol p.r.n. PHYSICAL EXAMINATION: VITAL SIGNS: Temperature is 36.8, pulse is 91, blood pressure is 125/62, respiratory rate is 20. GENERAL: She is alert and oriented x 3, in no acute distress. HEENT: Sclerae nonicteric. Oropharynx clear. Oxygen is on, she is on 3.5 liters. NECK: Supple, without lymphadenopathy. CARDIOVASCULAR: Regular rate. CHEST: With faint crackles bilaterally as well as wheezes bilaterally. ABDOMEN: Soft. She is nontender, nondistended, normoactive bowel sounds. EXTREMITIES: Edema bilaterally of lower extremities. LABORATORY DATA: WBC is 6.1, hemoglobin currently 7.6, platelet count is 261, MCV 80.9. Sodium 141, potassium 4.4, chloride 104, bicarbonate 32, BUN 38, creatinine 2.8, glucose 98, calcium 8.4, phosphorus 3.4. Iron 65, TIBC 282, percent sat 23, ferritin 396. Total bilirubin is less than 0.1, direct bilirubin 0.3, AST is 12, ALT is 16, alkaline phosphatase 110. Troponin 0.01, that was in October. ASSESSMENT AND PLAN: Anemia. The patient with Hemoccult positive stool. There have been no signs of obvious significant GI bleed such as melena or bright red blood per rectum. She has a known history of chronic anemia. This may be secondary to chronic renal insufficiency and appears she has not received her EPO for the last 2 months per the patient. This could be playing a role with recent drop in her hemoglobin; however, she is heme positive. Because of her severe pulmonary hypertension, she is at increased risk obviously for endoscopy and sedation. She does have a previous history of gastric ulcer with visible vessel that was treated. However, she has been on PPI therapy and Carafate since that time, which decreases the risk. I would recommend continuing monitoring hemoglobin. If there is a drop in her hemoglobin or signs of significant bleeding, then would consider repeat endoscopy at that time. Otherwise, I would monitor hemoglobin after given EPO to see if she benefits from this in the near future. We will continue to follow. Thank you for allowing me to participate in her care. <ELECTRONICALLY SIGNED> By: Zach Bettencourt MD 12/11/18 0811 [id number] 1710 Zach Bettencourt MD /nt
== END 2018-12-09 13:48 | disposition home health service (06) | DRG 682 ==
LOC: ER 10:57 → EROBS 12:18 → ICU 12:18 → 3W 11-30 22:48
PROVIDERS: Hospitalist; Internal Medicine; Internal Medicine Pulmonary Disease; Nurse Practitioner Acute Care; Nurse Practitioner Family; Pediatrics; ADMIT Internal Medicine
PROC: 5A09357 Assistance with Respiratory Ventilation, Less than 24 Consecutive Hours, Continuous Positive Airway Pressure (ICD-10-PCS; principal; 2018-11-27)
PROC: 5A09357 Assistance with Respiratory Ventilation, Less than 24 Consecutive Hours, Continuous Positive Airway Pressure (ICD-10-PCS; 2018-11-28)
PROC: 5A09357 Assistance with Respiratory Ventilation, Less than 24 Consecutive Hours, Continuous Positive Airway Pressure (ICD-10-PCS; 2018-11-29)
PROC: 2Y41X5Z Packing of Nasal Region using Packing Material (ICD-10-PCS; 2018-11-30)
PROC: 5A09357 Assistance with Respiratory Ventilation, Less than 24 Consecutive Hours, Continuous Positive Airway Pressure (ICD-10-PCS; 2018-11-30)
PROC: 5A09357 Assistance with Respiratory Ventilation, Less than 24 Consecutive Hours, Continuous Positive Airway Pressure (ICD-10-PCS; 2018-12-01)
PROC: 30233N1 Transfusion of Nonautologous Red Blood Cells into Peripheral Vein, Percutaneous Approach (ICD-10-PCS; 2018-12-03)
DX: N17.9 Acute kidney failure, unspecified (principal); J96.21 Acute and chronic respiratory failure with hypoxia; J18.9 Pneumonia, unspecified organism; I50.33 Acute on chronic diastolic (congestive) heart failure; J96.22 Acute and chronic respiratory failure with hypercapnia; J44.0 Chronic obstructive pulmonary disease with (acute) lower respiratory infection; I13.0 Hypertensive heart and chronic kidney disease with heart failure and stage 1 through stage 4 chronic kidney disease, or unspecified chronic kidney disease; J44.1 Chronic obstructive pulmonary disease with (acute) exacerbation; E87.2 Acidosis; D62 Acute posthemorrhagic anemia; D69.6 Thrombocytopenia, unspecified; E87.6 Hypokalemia; E83.42 Hypomagnesemia; F41.9 Anxiety disorder, unspecified; Z99.81 Dependence on supplemental oxygen; E66.01 Morbid (severe) obesity due to excess calories; G47.00 Insomnia, unspecified; T50.2X5A Adverse effect of carbonic-anhydrase inhibitors, benzothiadiazides and other diuretics, initial encounter; R04.0 Epistaxis; D63.1 Anemia in chronic kidney disease; N18.3 Chronic kidney disease, stage 3 (moderate); I27.20 Pulmonary hypertension, unspecified; F51.04 Psychophysiologic insomnia; G89.29 Other chronic pain; M54.5 Low back pain; D52.9 Folate deficiency anemia, unspecified; Z98.41 Cataract extraction status, right eye; Z98.42 Cataract extraction status, left eye; Z88.8 Allergy status to other drugs, medicaments and biological substances; Z87.891 Personal history of nicotine dependence; Z86.711 Personal history of pulmonary embolism; Z86.718 Personal history of other venous thrombosis and embolism; Y92.89 Other specified places as the place of occurrence of the external cause; Z68.28 Body mass index [BMI] 28.0-28.9, adult
CPT/HCPCS: 10078; 10879

== ENCOUNTER 2018-12-26 13:55 | Emergency (ER) | payer OTHER ==
[~2018-12-26] VITALS: Ht 154.9 cm; Wt 74.4 kg
[2018-12-26 15:12] VITALS: BP 123/68
== END 2018-12-26 15:13 | disposition home or self-care (01) ==
LOC: ER 13:55
DX: R55 Syncope and collapse (principal); R09.02 Hypoxemia; G89.29 Other chronic pain; F41.9 Anxiety disorder, unspecified; J44.9 Chronic obstructive pulmonary disease, unspecified; I13.10 Hypertensive heart and chronic kidney disease without heart failure, with stage 1 through stage 4 chronic kidney disease, or unspecified chronic kidney disease; N18.3 Chronic kidney disease, stage 3 (moderate); Z87.891 Personal history of nicotine dependence; Z88.8 Allergy status to other drugs, medicaments and biological substances; Z87.01 Personal history of pneumonia (recurrent); Z86.2 Personal history of diseases of the blood and blood-forming organs and certain disorders involving the immune mechanism